=== PATIENT | male | born 1960 | race Caucasian/White ===

== ENCOUNTER 2021-08-26 09:01 | Emergency (ER) | payer OTHER ==
[~2021-08-26] VITALS: Ht 172.7 cm; Wt 71.2 kg
--- NOTE | 2021-08-26 09:02 | NUR ---
MD at bedside, medical screening exam in progress.
[2021-08-26] MEDS ORDERED: COLCHICINE 0.6 MG TABLET PO ONE (09:30)
[2021-08-26] MEDS ORDERED: DEXAMETHASONE 5 MG/5 ML LIQUID UDC PO ONE (09:30)
[2021-08-26] MEDS ORDERED: COLCHICINE 0.6 MG TABLET ONE (09:31)
[2021-08-26] MEDS ORDERED: DEXAMETHASONE 5 MG/5 ML LIQUID UDC ONE (09:31)
[2021-08-26] MEDS ORDERED: INDO-12 PO (09:36)
[2021-08-26 09:41] VITALS: BP 122/70
--- NOTE | 2021-08-26 09:41 | NUR ---
dPatient discharged to home in stable condition. Written and verbal after care instructions given. Patient verbalizes understanding of instructions. Stressed follow up or return to ER for worsening s/s.
== END 2021-08-26 10:23 | disposition home or self-care (01) ==
LOC: ER 09:01
DX: M10.9 Gout, unspecified (principal); E78.5 Hyperlipidemia, unspecified
CPT/HCPCS: 99283; J8540; A4663